=== PATIENT | female | born 2000 | race Caucasian/White ===

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

== ENCOUNTER 2019-02-23 08:32 | Day surgery (SDC) | payer BC ==
--- NOTE | 2019-02-23 13:43 | OP ---
DATE OF PROCEDURE: 02/23/2019 PROCEDURE PERFORMED: Colonoscopy with biopsy. PREOPERATIVE DIAGNOSIS: Chronic diarrhea. DESCRIPTION OF PROCEDURE: Informed consent was obtained from the patient. She was sedated with total intravenous anesthesia. The rectal exam was performed and was normal. The colonoscope was advanced to the terminal ileum without difficulty. The mucosa of the terminal ileum was normal. The ileocecal valve and appendiceal orifice were clearly identified. The preparation quality was fair. The colonic mucosa was normal throughout. Retroflexed views in the rectum were normal. Random biopsies were taken from the right and left colon to rule out microscopic colitis. Retroflex views in the rectum were normal. IMPRESSION: Normal ileocolonoscopy. Random colon biopsies were taken to rule out microscopic colitis. RECOMMENDATIONS: 1. Await histopathology. 2. Follow up in GI clinic. Job ID: [id number]
== END 2019-02-23 12:05 | disposition home or self-care (01) ==
LOC: SDC 08:32
PROVIDERS: ATTEND Internal Medicine Gastroenterology
PROC: 0DBF8ZX Excision of Right Large Intestine, Via Natural or Artificial Opening Endoscopic, Diagnostic (ICD-10-PCS; principal; 2019-02-23)
PROC: 0DBG8ZX Excision of Left Large Intestine, Via Natural or Artificial Opening Endoscopic, Diagnostic (ICD-10-PCS; principal; 2019-02-23)
DX: K52.9 Noninfective gastroenteritis and colitis, unspecified (principal); K31.84 Gastroparesis; K21.9 Gastro-esophageal reflux disease without esophagitis; F41.9 Anxiety disorder, unspecified; G47.30 Sleep apnea, unspecified; Z88.8 Allergy status to other drugs, medicaments and biological substances; Z79.899 Other long term (current) drug therapy
CPT/HCPCS: 88305

== ENCOUNTER 2019-02-25 10:32 | Day surgery (SDC) | payer BC ==
[2019-02-24 09:41] VITALS: BMI 45.6
[2019-02-25] MEDS ORDERED: Bupivacaine/Epinephrine 0.25% 30 ML VIAL ONE (12:03)
[2019-02-25] MEDS ORDERED: Lidocaine 2% PF 5 ML VIAL ONE (12:03)
[2019-02-25] MEDS ORDERED: Midazolam HCl 2 mg/2 ml Vial ONE (12:08)
[2019-02-25] MEDS ORDERED: Fentanyl 100 MCG/2 ML VIAL ONE ×2 (12:08→13:16)
[2019-02-25] MEDS ORDERED: Promethazine HCl 25 MG/ML VIAL ONE (13:16)
--- NOTE | 2019-02-25 14:38 | RAD ---
AP CHEST: Date: 02/25/19 HISTORY: Assess MediPort placement. FINDINGS/IMPRESSION: Poor inspiration. Heart size is accentuated. The vascular markings are accentuated by this position. MediPort catheter is in place via the right jugular. The tip overlies the right atrium. POS: [facility]
[2019-02-25] MEDS ORDERED: HYDROcodone/Acetaminophen 5/325 mg Tablet ONE (14:52)
[2019-02-25] MEDS ORDERED: Lidocaine 1% PF 5 ML VIAL ONE (16:35)
[2019-02-25] MEDS ORDERED: PROPOFOL 200 MG/20 ML VIAL ONE (16:35)
[2019-02-25] MEDS ORDERED: Ondansetron PF 4 MG/2 ML Vial ONE (16:35)
[2019-02-25] MEDS ORDERED: Dexamethasone 20 MG/5 ML VIAL ONE (16:35)
--- NOTE | 2019-02-25 16:44 | OP ---
DATE OF PROCEDURE: 02/25/2019 PREOPERATIVE DIAGNOSIS: Lupus venous insufficiency. POSTOPERATIVE DIAGNOSIS: Lupus venous insufficiency. PROCEDURES PERFORMED: Tunnelled central line subcutaneous port (MediPort CT injectable). ANESTHESIA: TIVA, local. ESTIMATED BLOOD LOSS: Minimal. COMPLICATION: None. SPECIMEN: None. FINDINGS: Tip of the catheter at atriocaval junction. DESCRIPTION OF PROCEDURE: The patient was taken to the operating room and laid supine on the operating room table. After general anesthetic was obtained, the neck and bilateral chest was prepped and draped in a sterile fashion. Local anesthetic was infiltrated over the right internal jugular vein. Internal jugular vein was cannulated using a 22-gauge finder needle followed by a Seldinger needle. Wire was passed into superior vena cava under fluoro guidance. A small sukumar was made at the wire entrance site. A separate 3 cm incision made in the right upper chest. Subcutaneous pocket made below the lower incision. Tubing for the MediPort tunnelled from the inferior to superior incision and suture sheaths placed over the wire into the superior vena cava under fluoro guidance. The dilator and wire were removed. The end of the catheter sewed into the sheath. The sheath was peeled away. The tip of the catheter at the atriocaval junction. MediPort tubing was cut to fit the MediPort at lower incision, connected the MediPort. MediPort sewn to the chest wall in subcutaneous pocket using Prolene. The MediPort flushes and draws blood without difficulty. It was flushed with the heparin flush. The wounds were irrigated, closed using 3-0 Vicryl, 4-0 Monocryl, and Dermabond. The patient was sent to Recovery in stable condition. All instrument counts, needle counts, and lap counts were correct. Job ID: [id number]
== END 2019-02-25 15:30 | disposition home or self-care (01) ==
LOC: SDC 10:32
PROVIDERS: ATTEND Surgery
PROC: 05HM33Z Insertion of Infusion Device into Right Internal Jugular Vein, Percutaneous Approach (ICD-10-PCS; principal; 2019-02-25)
DX: I87.2 Venous insufficiency (chronic) (peripheral) (principal)
CPT/HCPCS: 71045; C1788; J0690; J1642; J2001; J2250; J2550; J3010

== ENCOUNTER 2019-03-03 14:49 | Outpatient (CLI) | payer BC | END 2019-03-03 14:50 | disposition home or self-care (01) | LOC: CTENTCT 14:49 | PROVIDERS: ATTEND Specialist | DX: J32.9 Chronic sinusitis, unspecified (principal); R51 Headache | CPT/HCPCS: 70486 ==

== ENCOUNTER 2019-04-07 10:20 | Outpatient (CLI) | payer BC ==
--- NOTE | 2019-04-07 10:49 | RAD ---
EXAM: Single view of the chest HISTORY: Dyspnea COMPARISON: 02/25/2019 FINDINGS: Single apical view of the chest shows a normal sized cardiomediastinal silhouette. A cardi ac monitoring device projects over the left chest wall. There is a right IJ Mediport with its tip in the superior vena cava. There is no evidence of consolidation, mass, or pleural effusion. The bon es are unremarkable. IMPRESSION: No evidence of acute cardiopulmonary disease
== END 2019-04-07 10:21 | disposition home or self-care (01) ==
LOC: RAD 10:20
PROVIDERS: ATTEND Surgery
DX: R06.00 Dyspnea, unspecified (principal)
CPT/HCPCS: 71045

== ENCOUNTER 2019-04-07 10:44 | Emergency (ER) | payer BC ==
[2019-04-07 11:35] LABS: #Basophils 0.1 thou/uL (0.0-0.2); #Eosinphils 0.1 thou/uL (0.0-0.7); #Lymphocytes 1.6 thou/uL (1.20-3.40); #Neutrophils 12.7 thou/uL (1.40-6.50); %Basophils 0.4 % (0.0-1.0); %Monocytes 6.4 % (0.0-4.0); %Neutrophils 82.2 % (31.0-61.0); Hemoglobin 15.6 g/dL (12.0-16.0); Mean Corpuscular HGB CONC 34.5 g/dL (32.0-36.0); Mean Corpuscular Hemoglobin 29.6 pg (25.0-35.0); Platelet Count 262 thou/uL (130-400); RBC Distribution Width 16.9 % (11.5-14.5); Red Blood Cell (RBC) Count 5.25 mill/uL (4.00-5.20); White Blood Cell (WBC) Count 15.5 thou/uL (4.8-10.8)
[2019-04-07 11:41] LABS: Bilirubin Negative (Negative); Blood, Urine 1+ (Negative); Clarity Clear (Clear); Glucose, Urine (Dipstick) Normal (Negative); Leukocyte Negative Leu/uL (Negative); Nitrite Negative (Negative); Protein, Urine (Dipstick) Negative (Neg-Trace); Urobilinogen Normal mg/dL (Less than 2)
[2019-04-07 11:42] LABS: Bacteria/HPF 1+ HPF (None Seen)
[2019-04-07 11:56] LABS: BHCG - Serum Negative (NEGATIVE); Pregs Control Background? CLEAR/WHITE (CLR/WHITE); Pregs Control Bar Appear? YES (CONTROL BAR)
[2019-04-07 12:06] LABS: ALT (SGPT) 30 U/L (8-55); AST (SGOT) 17 U/L (5-30); Albumin 3.9 g/dL (3.5-5.0); Alkaline Phosphatase 93 U/L (40-150); Anion Gap 13 mmol/L (10-20); BUN (Urea Nitrogen) 10 mg/dL (8.4-21.0); Bilirubin, Total 0.3 mg/dL (0.2-1.2); Calc. Creatinine Clearance 0 mL/min (70-130); Calcium 9.8 mg/dL (7.8-10.44); Carbon Dioxide 22 mmol/L (22-29); Chloride 105 mmol/L (98-107); Estimated GFR-MDRD Greater than 90; Globulin 3.7 g/dL (2.4-3.5); Glucose 99 mg/dL (70-105); Potassium 4.3 mmol/L (3.5-5.1); Protein, Total 7.6 g/dL (6.0-8.3); Sodium 136 mmol/L (136-145)
--- NOTE | 2019-04-07 13:01 | CT ---
CT abdomen and pelvis: Mandeep juarez today COMPARISON: 09/22/2018 HISTORY: Lower abdominal pain with nausea and vomiting TECHNIQUE: Axial CT imaging at 5 mm intervals from lung bases through pubic symphysis with IV contras t. Coronal reformatted imaging obtained. FINDINGS: The imaged lung bases are unremarkable. No free intraperitoneal air or fluid is seen. The g allbladder is surgically absent. The hepatic parenchyma is diffusely hypodense, suggesting a degree of steatosis. Liver, spleen, pancreas, adrenal glands, and kidneys demonstrate no acute findings. There is a nonobstructing stone in the lower pole of the left kidney measuring 3-4 mm. The patient reports a history of appendectomy. No evidence for bowel inflammatory change or bowel obstruction. The vascular structures of the abdomen/pelvis appear patent. No lymphadenopathy is noted. Review of the osseous structures demonstrates no lytic or blastic bone lesion. IMPRESSION: No acute findings.
== END 2019-04-07 14:01 | disposition home or self-care (01) ==
LOC: ERS 10:44
DX: R10.9 Unspecified abdominal pain (principal); I49.9 Cardiac arrhythmia, unspecified; I47.1 Supraventricular tachycardia; Z79.899 Other long term (current) drug therapy
CPT/HCPCS: 36415; 71045; 74177; 80053; 81003; 81015; 84703; 85025

== ENCOUNTER 2019-04-22 08:04 | Day surgery (SDC) | payer BC | END 2019-04-22 10:03 | disposition home or self-care (01) | LOC: SDC 08:04 | PROVIDERS: ATTEND Specialist | DX: J32.8 Other chronic sinusitis (principal); J34.3 Hypertrophy of nasal turbinates; M32.9 Systemic lupus erythematosus, unspecified; Z53.8 Procedure and treatment not carried out for other reasons; Z88.8 Allergy status to other drugs, medicaments and biological substances; Z79.899 Other long term (current) drug therapy | CPT/HCPCS: J1642 ==

== ENCOUNTER 2019-04-23 14:56 | Outpatient (CLI) | payer BC ==
--- NOTE | 2019-04-23 17:38 | ULT ---
SACRAL ULTRASOUND: INDICATIONS: Directed ultrasound of the sacrum is performed to assess a previous incision site for abscess drainag e. The patient states that there was drainage at this site in the ER four days ago. FINDINGS: At the incision site, there is a complex, isoechoic to hypoechoic nodular area, measuring up to 1.8 c m. This is not cystic by ultrasound and does not represent fluid or abscess. There is vascular flow within this area by Doppler. IMPRESSION: A complex, solid appearing, nodular area at the site of the incision, posterior sacral region. This is indeterminate by ultrasound. Post contrast CT may be of benefit to further characterize. POS: [facility]
== END 2019-04-23 14:57 | disposition home or self-care (01) ==
LOC: SCSULT 14:56
PROVIDERS: ATTEND Specialist
DX: K68.19 Other retroperitoneal abscess (principal)
CPT/HCPCS: 76999

== ENCOUNTER 2019-05-11 08:47 | Day surgery (SDC) | payer BC ==
[2019-05-10 08:24] VITALS: BMI 42.5
[2019-05-11 10:37] LABS: BHCG - Serum Negative (NEGATIVE)
[2019-05-11 10:38] LABS: Pregs Control Background? CLEAR/WHITE (CLR/WHITE); Pregs Control Bar Appear? YES (CONTROL BAR)
[2019-05-11] MEDS ORDERED: Lidocaine 2% PF 5 ML VIAL ONE (11:09)
[2019-05-11] MEDS ORDERED: Bupivacaine/Epinephrine 0.25% 30 ML VIAL ONE (11:09)
[2019-05-11] MEDS ORDERED: Fentanyl 100 MCG/2 ML VIAL ONE ×2 (11:12→13:28)
[2019-05-11] MEDS ORDERED: Ondansetron PF 4 MG/2 ML Vial ONE (11:12)
[2019-05-11] MEDS ORDERED: Lidocaine 1% PF 5 ML VIAL ONE (11:12)
[2019-05-11] MEDS ORDERED: PROPOFOL 200 MG/20 ML VIAL ONE (11:12)
--- NOTE | 2019-05-11 12:56 | RAD ---
Exam: Chest one view HISTORY:Status post Mediport catheter revision Comparison: 02/25/2019 FINDINGS: Cardiac silhouette: Normal Aorta: Normal caliber Lines and tubes: Redemonstration of a right-sided Mediport catheter. Distal tip terminates in the reg ion right atrium. Pulmonary vessels: Normal Costophrenic angles: Clear LUNGS: No masses or consolidation. Pneumothorax: None Osseous abnormalities: None IMPRESSION: Right-sided Mediport catheter, terminating in the region right atrium. No pneumothorax.
--- NOTE | 2019-05-11 14:26 | OP ---
DATE OF PROCEDURE: 05/11/2019 PREOPERATIVE DIAGNOSIS: Nonfunctioning MediPort. POSTOPERATIVE DIAGNOSIS: Nonfunctioning MediPort. PROCEDURE PERFORMED: Revision of MediPort. ANESTHESIA: General. ESTIMATED BLOOD LOSS: Minimal. COMPLICATIONS: None. SPECIMEN: None. FINDINGS: The MediPort was flipped on its side. It was flipped back to the normal orientation and sutured to the chest wall. TECHNIQUE: The patient was taken to the operating room and laid supine on the operating room table. After general anesthetic was obtained, the chest and neck was prepped and draped in a sterile fashion. MediPort incision was reopened. The MediPort was dissected free. It was flipped back flat against the chest wall. It was sewn via Prolene suture to the chest wall at all four quadrants. It flushes and draws blood without difficulty. It was flushed with hep flush. The wound was irrigated and closed using 3-0 Vicryl, 4-0 Monocryl, and Dermabond. The patient was sent to Recovery in stable condition. All instrument counts, needle counts, and lap counts were correct. Job ID: [id number]
== END 2019-05-11 15:00 | disposition home or self-care (01) ==
LOC: SDC 08:47
PROVIDERS: ATTEND Surgery
PROC: 06H033Z Insertion of Infusion Device into Inferior Vena Cava, Percutaneous Approach (ICD-10-PCS; principal; 2019-05-11)
DX: T82.898A Other specified complication of vascular prosthetic devices, implants and grafts, initial encounter (principal); M32.9 Systemic lupus erythematosus, unspecified; D64.9 Anemia, unspecified; M19.90 Unspecified osteoarthritis, unspecified site; G89.29 Other chronic pain; Z79.899 Other long term (current) drug therapy
CPT/HCPCS: 71045; 84703; J0690; J1642; J2001; J2405; J2704; J3010

== ENCOUNTER 2019-05-13 07:21 | Outpatient (CLI) | payer BC ==
--- NOTE | 2019-05-13 11:56 | NM ---
RADIONUCLIDE GASTRIC EMPTYING SCAN: HISTORY: Gastroparesis RADIOPHARMACEUTICAL: 2 mCi technetium 99m sulfur colloid administered orally in scrambled eggs. FINDINGS: Gastric emptying at different times is as follows: 1 hour: 46% 2 hours: 52% 3 hours: 99% The calculated gastric emptying half-time [id number]. IMPRESSION: Normal exam
== END 2019-05-13 07:22 | disposition home or self-care (01) ==
LOC: NM 07:21
PROVIDERS: ATTEND Physician Assistant Medical
DX: K31.84 Gastroparesis (principal)
CPT/HCPCS: 78264; A9541

== ENCOUNTER 2019-07-30 08:01 | Outpatient (CLI) | payer BC ==
--- NOTE | 2019-07-30 10:45 | CT ---
CT abdomen and pelvis without and with IV contrast HISTORY: Intractable vomiting. Nausea. Abdominal pain and bloating. FINDINGS: Enterography protocol was used. Lung bases are clear. Liver is diffusely hypodense. Gallbla dder is surgically absent. Appendix not visualized and also likely surgically absent. No focal liver or spleen abnormalities. Kidneys, adrenal glands, and pancreas are unremarkable. Nonsp ecific lymph nodes throughout the retroperitoneum and mesentery. Urinary bladder unremarkable. No abnormal areas of bowel enhancement. Terminal ileum has normal appearance. No evidence of obstruct ion. IMPRESSION: No bowel abnormalities are demonstrated. Status post cholecystectomy. Hepatosteatosis.
[2019-07-30] MEDS ORDERED: Iopamidol 370 76% 100 ML VIAL ONE (16:13)
== END 2019-07-30 08:02 | disposition home or self-care (01) ==
LOC: CT 08:01
PROVIDERS: ATTEND Internal Medicine Gastroenterology
DX: R11.2 Nausea with vomiting, unspecified (principal); R10.84 Generalized abdominal pain; R14.0 Abdominal distension (gaseous); K76.0 Fatty (change of) liver, not elsewhere classified; Z90.49 Acquired absence of other specified parts of digestive tract
CPT/HCPCS: 74178; Q9967

== ENCOUNTER 2020-03-02 08:36 | Outpatient (CLI) | payer BC ==
--- NOTE | 2020-03-02 09:07 | RAD ---
EXAM: 5 views of the cervical spine HISTORY: Neck pain COMPARISON: None FINDINGS: AP, lateral, oblique, and open mouth odontoid views of the cervical spine shows normal heig ht and alignment of the vertebral bodies and intervertebral discs without fracture or subluxation. No degenerative changes are seen. No prevertebral soft tissue swelling is seen. No foraminal stenosis is seen on the oblique views.. A right-sided Mediport is partially visualized. IMPRESSION: No significant cervical spine abnormality.
== END 2020-03-02 08:37 | disposition home or self-care (01) ==
LOC: BICRAD 08:36
PROVIDERS: ATTEND Internal Medicine Rheumatology
DX: M54.12 Radiculopathy, cervical region (principal)
CPT/HCPCS: 72050

== ENCOUNTER 2020-07-20 11:31 | Emergency (ER) | payer BC ==
--- NOTE | 2020-07-20 12:43 | CT ---
CT BRAIN NONCONTRAST: DATE: 07/20/2020 HISTORY: 20-year-old female with "atraumatic swelling of forehead" FINDINGS: There is no evidence of acute intra-axial or extra-axial hemorrhage. There is no midline shift or any other mass effect. There is no extra-axial fluid collection. The ventricles are normal in size and configuration. The tympanomastoid cavities, and the upper portions of the paranasal sinuses included in these images, are grossly clear. Calvarium is intact. IMPRESSION: Normal.
[2020-07-20 13:22] LABS: #Eosinphils 0.1 thou/uL (0.0-0.7); #Lymphocytes 2.1 thou/uL (1.20-3.40); #Monocytes 0.7 thou/uL (0.11-0.59); #Neutrophils 3.7 thou/uL (1.40-6.50); %Basophils 0.5 % (0.0-1.0); %Eosinophils 0.8 % (0.0-10.0); %Lymphocytes 32.4 % (21.0-51.0); %Monocytes 9.9 % (0.0-10.0); %Neutrophils 56.4 % (42.0-75.0); Hemoglobin 15.7 g/dL (12.0-16.0); Mean Corpuscular HGB CONC 34.5 g/dL (32.0-36.0); Mean Corpuscular Hemoglobin 29.3 pg (27.0-31.0); Mean Platelet Volume 9.4 fL (7.4-10.4); Platelet Count 278 thou/uL (130-400); RBC Distribution Width 13.1 % (11.5-14.5); Red Blood Cell (RBC) Count 5.35 mill/uL (4.20-5.40); White Blood Cell (WBC) Count 6.6 thou/uL (4.8-10.8)
[2020-07-20 13:45] LABS: ALT (SGPT) 49 U/L (8-55); AST (SGOT) 29 U/L (5-34); Albumin 3.9 g/dL (3.5-5.0); Alkaline Phosphatase 71 U/L (40-110); Anion Gap 13 mmol/L (10-20); BUN (Urea Nitrogen) 14 mg/dL (7.0-18.7); Bilirubin, Total 0.3 mg/dL (0.2-1.2); CRP (Inflammatory) 0.58 mg/dL (= or < 0.5); Calc. Creatinine Clearance 0 mL/min (70-130); Calcium 9.7 mg/dL (7.8-10.44); Carbon Dioxide 19 mmol/L (22-29); Chloride 108 mmol/L (98-107); Estimated GFR-MDRD Greater than 90; Globulin 4.1 g/dL (2.4-3.5); Glucose 91 mg/dL (70-105); Potassium 4.1 mmol/L (3.5-5.1); Sodium 136 mmol/L (136-145)
--- NOTE | 2020-07-20 14:14 | CT ---
CT FACIAL BONES WITHOUT CONTRAST: 07/20/20 INDICATIONS: Lump on forehead. No trauma. Nasal bones and orbits appear intact and unremarkable. Maxilla and mandible appear intact. The parana derick sinuses and mastoid air cells are clear. No soft tissue or subcutaneous mass or edema seen. No focal subcutaneous lesion seen over the visuali zed portions of the forehead. IMPRESSION: Unremarkable CT facial bones. POS: [facility]
== END 2020-07-20 14:40 | disposition home or self-care (01) ==
LOC: ERS 11:31
DX: M79.89 Other specified soft tissue disorders (principal); F41.9 Anxiety disorder, unspecified; I47.1 Supraventricular tachycardia; K31.84 Gastroparesis; M32.9 Systemic lupus erythematosus, unspecified; Z79.899 Other long term (current) drug therapy
CPT/HCPCS: 36415; 70450; 70486; 80053; 85025; 86140

== ENCOUNTER 2021-08-23 13:05 | Outpatient (CLI) | payer BC ==
[2021-08-23 22:22] LABS: SARS-CoV-2 PCR by NAA Not Detected (NotDetected)
== END 2021-08-23 13:06 | disposition home or self-care (01) ==
LOC: LABBT 13:05
PROVIDERS: ATTEND Internal Medicine Gastroenterology
DX: Z01.812 Encounter for preprocedural laboratory examination (principal); Z20.822 Contact with and (suspected) exposure to COVID-19
CPT/HCPCS: U0003; U0005

== ENCOUNTER 2021-08-27 14:22 | Outpatient (CLI) | payer BC | END 2021-08-27 14:23 | disposition home or self-care (01) | LOC: BICCT 14:22 | PROVIDERS: ATTEND Physician Assistant Medical | DX: R11.2 Nausea with vomiting, unspecified (principal); R63.4 Abnormal weight loss | CPT/HCPCS: 70450 ==

== ENCOUNTER 2021-08-28 06:26 | Day surgery (SDC) | payer BC ==
[2021-08-27 14:24] VITALS: BMI 48.6
[2021-08-28] MEDS ORDERED: Ondansetron PF 4 MG/2 ML Vial ONE (07:49)
[2021-08-28] MEDS ORDERED: PROPOFOL 200 MG/20 ML VIAL ONE (08:10)
[2021-08-28] MEDS ORDERED: ePHEDrine 50 MG/ML VIAL ONE (08:10)
[2021-08-28] MEDS ORDERED: Lidocaine 1% PF 5 ML VIAL ONE (08:10)
[2021-08-28 09:33] LABS: Amphetamine Not Detected (NotDetected); Barbiturates Screen Not Detected (NotDetected); Benzodiazepine Screen Not Detected (NotDetected); Cocaine Metabolite Screen Not Detected (NotDetected); Methadone Not Detected (NotDetected); Methamphetamine Detected (NotDetected); Opiate Screen Not Detected (NotDetected); Oxycodone Screen Detected (NotDetected); Phencyclidine (PCP) Not Detected (NotDetected); THC/Cannabinoid Screen Detected (NotDetected); Tricyclic Screen Not Detected (NotDetected)
== END 2021-08-28 10:25 | disposition home or self-care (01) ==
LOC: SDC 06:26
PROVIDERS: ATTEND Internal Medicine Gastroenterology
PROC: 0DB98ZX Excision of Duodenum, Via Natural or Artificial Opening Endoscopic, Diagnostic (ICD-10-PCS; principal; 2021-08-28)
PROC: 0DB78ZX Excision of Stomach, Pylorus, Via Natural or Artificial Opening Endoscopic, Diagnostic (ICD-10-PCS; principal; 2021-08-28)
DX: K29.80 Duodenitis without bleeding (principal); K29.50 Unspecified chronic gastritis without bleeding; R11.2 Nausea with vomiting, unspecified; Z79.899 Other long term (current) drug therapy; Z88.8 Allergy status to other drugs, medicaments and biological substances
CPT/HCPCS: 74018; 80306; 88305; 88312; J1642; J2405; J2704; J3490

== ENCOUNTER 2023-07-29 06:35 | Emergency (ER) | payer BC, OTHER ==
[2023-07-29] MEDS ORDERED: Ketorolac Tromethamine 30 MG/ML VIAL ONE (07:54)
[2023-07-29] MEDS ORDERED: diphenhydrAMINE 50 MG/ML VIAL ONE (07:54)
[2023-07-29] MEDS ORDERED: Metoclopramide HCl 10 MG/2 ML VIAL ONE (07:54)
[2023-07-29 07:58] LABS: #Basophils 0.1 thou/uL (0.0-0.2); #Eosinphils 0.1 thou/uL (0.0-0.7); #Monocytes 0.6 thou/uL (0.11-0.59); #Neutrophils 4.3 thou/uL (1.40-6.50); %Eosinophils 0.8 % (0.0-10.0); %Lymphocytes 30.2 % (21.0-51.0); %Monocytes 8.9 % (0.0-10.0); Hematocrit 39.2 % (36.0-47.0); Hemoglobin 12.6 g/dL (12.0-16.0); Mean Corpuscular HGB CONC 32.1 g/dL (32.0-36.0); Mean Corpuscular Hemoglobin 27.8 pg (27.0-31.0); Mean Corpuscular Volume 86.3 fl (78.0-98.0); Mean Platelet Volume 11.4 fL (7.4-10.4); Platelet Count 253 10x3/uL (130-400); RBC Distribution Width 15.4 % (11.5-14.5); Red Blood Cell (RBC) Count 4.54 mill/uL (4.20-5.40); White Blood Cell (WBC) Count 7.2 10x3/uL (4.8-10.8)
[2023-07-29 08:05] LABS: BHCG - Serum Negative (NEGATIVE); Pregs Control Background? CLEAR/WHITE (CLR/WHITE); Pregs Control Bar Appear? YES (CONTROL BAR)
[2023-07-29 08:27] LABS: ALT (SGPT) 11 U/L (8-55); AST (SGOT) 11 U/L (5-34); Albumin 4.4 g/dL (3.5-5.0); Alkaline Phosphatase 62 U/L (40-110); Anion Gap 10 mmol/L (10-20); BUN (Urea Nitrogen) 14 mg/dL (7.0-18.7); Bilirubin, Total 0.3 mg/dL (0.2-1.2); Calc. Creatinine Clearance 0 mL/min (70-130); Calcium 9.1 mg/dL (7.8-10.44); Carbon Dioxide 23 mmol/L (22-29); Chloride 110 mmol/L (98-107); Estimated GFR 120; Globulin 3.2 g/dL (2.4-3.5); Glucose 89 mg/dL (70-105); Potassium 4.6 mmol/L (3.5-5.1); Protein, Total 7.6 g/dL (6.0-8.3); Sodium 138 mmol/L (136-145)
[2023-07-29 09:17] LABS: Acetaminophen Less than 10 mcg/mL (10.0-30.0); Alcohol Less than 10.0 mg/dL (Less than 10); Salicylate Less than 8.0 mg/dL (15.0-30.0)
[2023-07-29] MEDS ORDERED: Midazolam HCl 2 mg/2 ml Vial ONE (10:45)
[2023-07-29 12:38] LABS: CSF RBC Count - Manual 0 /cu.mm (None Seen); CSF Source CSF; CSF WBC/NonHematics Count-Man 1 /cu.mm (0-5); Clarity Clear (Clear); Tube # 4
[2023-07-29 12:55] LABS: CSF, Glucose 54 mg/dl (40-70); CSF, Protein 22 mg/dL (15-40)
[2023-07-29 13:23] LABS: Color Of CSF Supernatant COLORLESS (Colorless); Tube # 1; Unspun CSF Color COLORLESS (Colorless)
[2023-07-29 14:41] LABS: ALT (SGPT) 12 U/L (8-55); AST (SGOT) 13 U/L (5-34); Alkaline Phosphatase 50 U/L (40-110); Anion Gap 10 mmol/L (10-20); BUN (Urea Nitrogen) 14 mg/dL (7.0-18.7); Bilirubin, Total 0.4 mg/dL (0.2-1.2); Calc. Creatinine Clearance 0 mL/min (70-130); Carbon Dioxide 21 mmol/L (22-29); Chloride 111 mmol/L (98-107); Estimated GFR 125; Glucose 82 mg/dL (70-105); Potassium 3.9 mmol/L (3.5-5.1); Sodium 138 mmol/L (136-145)
== END 2023-07-29 15:07 | disposition home or self-care (01) ==
LOC: ERS 06:35
DX: R51.9 Headache, unspecified (principal)
CPT/HCPCS: 36415; 62270; 70450; 80053; 80307; 82945; 84157; 84703; 85025; 87070; 87205; 89051; 93005; 96365; 96366; 96375; J1200; J1885; J2250; J2765

== ENCOUNTER 2023-10-30 06:44 | Emergency (ER) | payer OTHER ==
[2023-10-30 07:58] LABS: Bacteria/HPF None Seen HPF (None Seen); Bilirubin Negative (Negative); Blood, Urine Negative (Negative); CAUTI Indications for Culture Pelvic or flank pain; Clarity Clear (Clear); Glucose, Urine (Dipstick) Normal (Negative); Ketone, Urine Negative (Negative); Leukocyte Negative Leu/uL (Negative); Nitrite Negative (Negative); Protein, Urine (Dipstick) Negative (Neg-Trace); RBC/HPF 0-3 HPF (0-3); Specific Gravity, Urine 1.025 (1.002-1.036); Squamous Epithelial 0-3 HPF (0-3); Urobilinogen Normal mg/dL (Less than 2); WBC/HPF 0-3 HPF (0-3); pH, Urine 5.5 (5.0-9.0)
[2023-10-30 07:59] LABS: #Basophils 0.1 thou/uL (0.0-0.2); #Eosinphils 0.1 thou/uL (0.0-0.7); #Monocytes 0.8 thou/uL (0.11-0.59); #Neutrophils 8.3 thou/uL (1.40-6.50); %Basophils 0.7 % (0.0-1.0); %Eosinophils 1.1 % (0.0-10.0); %Lymphocytes 19.8 % (21.0-51.0); %Monocytes 7.1 % (0.0-10.0); Hematocrit 38.9 % (36.0-47.0); Hemoglobin 12.4 g/dL (12.0-16.0); Mean Corpuscular HGB CONC 31.9 g/dL (32.0-36.0); Mean Corpuscular Hemoglobin 27.5 pg (27.0-31.0); Mean Corpuscular Volume 86.3 fl (78.0-98.0); Mean Platelet Volume 10.3 fL (7.4-10.4); Platelet Count 304 10x3/uL (130-400); RBC Distribution Width 15.7 % (11.5-14.5); Red Blood Cell (RBC) Count 4.51 mill/uL (4.20-5.40); White Blood Cell (WBC) Count 11.7 10x3/uL (4.8-10.8)
[2023-10-30 08:00] LABS: Urine Culture Reflex No No
[2023-10-30 08:12] LABS: ALT (SGPT) 13 U/L (8-55); AST (SGOT) 8 U/L (5-34); Albumin 3.9 g/dL (3.5-5.0); Alkaline Phosphatase 68 U/L (40-110); Anion Gap 8 mmol/L (10-20); BUN (Urea Nitrogen) 13 mg/dL (7.0-18.7); Bilirubin, Total Less than 0.2 mg/dL (0.2-1.2); Calc. Creatinine Clearance 0 mL/min (70-130); Calcium 9.2 mg/dL (7.8-10.44); Carbon Dioxide 25 mmol/L (22-29); Chloride 106 mmol/L (98-107); Estimated GFR 124; Globulin 3.3 g/dL (2.4-3.5); Glucose 97 mg/dL (70-105); Lipase 41 U/L (8-78); Potassium 4.1 mmol/L (3.5-5.1); Protein, Total 7.2 g/dL (6.0-8.3); Sodium 135 mmol/L (136-145)
[2023-10-30 08:18] LABS: BHCG - Serum Negative (NEGATIVE); Pregs Control Background? CLEAR/WHITE (CLR/WHITE); Pregs Control Bar Appear? YES (CONTROL BAR)
[2023-10-30] MEDS ORDERED: Ketorolac Tromethamine 30 MG (1 mL) VIAL ONE (08:39)
== END 2023-10-30 10:05 | disposition home or self-care (01) ==
LOC: ERS 06:44
DX: R10.2 Pelvic and perineal pain (principal); N83.201 Unspecified ovarian cyst, right side; G43.909 Migraine, unspecified, not intractable, without status migrainosus; K31.84 Gastroparesis; N20.0 Calculus of kidney; I47.10 Supraventricular tachycardia, unspecified; M32.9 Systemic lupus erythematosus, unspecified; Z75.3 Unavailability and inaccessibility of health-care facilities; Z55.6 Problems related to health literacy
CPT/HCPCS: 36415; 76856; 80053; 81001; 83690; 84703; 85025; 96372; J1885